=== PATIENT | male | born 1945 | race Caucasian/White ===

== ENCOUNTER 2021-03-16 16:35 | Emergency (ER) | payer OTHER ==
[~2021-03-16] VITALS: Ht 182.9 cm; Wt 90.7 kg
[~2021-03-16 16:35] MED LIST: CENTRUM SILVER1 EAC1 PO; GLIPIZIDE XL10 MG PO; GLUCOPHAGE500 MG PO; NIASPAN PO; PRAVASTATIN SOD80 MG PO
[2021-03-16 17:29] LABS: CALCIUM 9.8 mg/dL (8.5-10.1); CREATININE 2.4 mg/dL (0.7-1.3); POTASSIUM 5.1 mmol/L (3.5-5.1)
[2021-03-16 17:46] LABS: ALBUMIN 2.9 g/dL (3.4-5.0); TOTAL BILIRUBIN 0.8 mg/dL (0.2-1.0); TOTAL PROTEIN 7.6 g/dL (6.4-8.2)
[2021-03-16 18:27] LABS: ABSOLUTE NEUTROPHILS 5.2 thou/uL (1.4-8.2); BASOPHILS 0.5 % (0.0-2.0); EOSINOPHILS 0.6 % (0.0-3.0); HEMATOCRIT 37.9 % (42.0-52.0); HEMOGLOBIN 12.6 gm/dL (14.0-18.0); MCH 29.9 pg (26.0-34.0); MCHC 33.3 g/dL (28.0-37.0); MCV 89.6 fL (80.0-100.0); MONOCYTES 7.2 % (1.0-8.0); PLATELET COUNT 312 thou/uL (150-400); POLYS 78.7 % (36.0-66.0); RBC 4.23 mil/uL (4.50-6.00); RDW 13.5 % (10.5-14.5); WBC 6.6 thou/uL (4.0-11.0)
[2021-03-16 20:53] VITALS: BP 157/67
--- NOTE | 2021-03-17 11:57 | EKG ---
[place] [address] [employer] [facility] [place] [address] ELECTROCARDIOGRAM REPORT Name: RAFAEL JASSO [id number] Admission: 03/16/21 Attend Phys: Discharge: 03/16/21 Date of : 47 Report #: [id number] [facility] ED Test Date: 2021-03-16 Test Time: 16:43:48 Pat Name: RAFAEL JASSO Department: Room: Gender: Product Managent Intern: DEBBIE : 1945 Requested By: Bianca Herzog Order Number: [id number] MD: Guy Almonte Measurements Intervals [place] Rate: 94 P: 75 IN: 127 QRS: 49 QRSD: 83 T: -72 QT: 365 QTc: 457 Interpretive Statements Sinus rhythm Repol abnrm suggests ischemia, diffuse leads No previous ECG available for comparison Electronically Signed On 03-17-2021 11:56:51 [employer]AN ROOM [employer]SEM[employer]ER by Guy Almonte [email or web address] <ELECTRONICALLY SIGNED> By: Guy Almonte MD, [facility] 03/17/21 1156 1643 1643 Guy Almonte MD, FACLiana /EPI
== END 2021-03-16 20:57 | disposition home or self-care (01) ==
LOC: ER 16:35
PROVIDERS: Emergency Medicine
DX: I95.1 Orthostatic hypotension (principal); Z20.822 Contact with and (suspected) exposure to COVID-19; E11.9 Type 2 diabetes mellitus without complications; E78.00 Pure hypercholesterolemia, unspecified; Z79.84 Long term (current) use of oral hypoglycemic drugs; Z79.899 Other long term (current) drug therapy